=== PATIENT | male | born 1970 | race Caucasian/White ===

== ENCOUNTER 2025-04-17 11:03 | Emergency (ER) | payer MEDICAID ==
[~2025-04-17] VITALS: Ht 172.7 cm; Wt 121.0 kg
[2025-04-17 11:18] VITALS: TEMP 37.1; O2SAT 97
[2025-04-17 12:35] LABS: BASOPHILS % 0.9 % (0.0-2.0); EOSINOPHILS % 3.2 % (0.0-5.0); HEMATOCRIT. 40.4 % (42.0-52.0); HEMOGLOBIN. 12.7 g/dL (14.0-18.0); LYMPHOCYTES % 7.5 % (20.0-50.0); MEAN PLATELET VOLUME 8.7 fl (7.4-10.4); MONOCYTES % 7.7 % (2.0-8.0); NEUTROPHILS % 80.7 % (40.0-76.0); PLATELET 191 x1000/uL (130-400); RED BLOOD CELL COUNT 4.81 mill/uL (4.7-6.1); RED CELL DISTRIBUTION WIDTH 16.6 % (11.6-14.6)
[2025-04-17 12:40] LABS: CREATININE 1.5 mg/dL (0.6-1.3); UREA NITROGEN BLOOD 22.0 mg/dL (9-23)
[2025-04-17 12:42] LABS: TROPONIN I HIGH SENSITIVITY 10 ng/L (3.0-53)
[2025-04-17 13:39] LABS: ERYTHROCYTE SEDIMENTATION RATE 31 mm/hr (0-20)
[2025-04-17] MEDS ORDERED: SULF1TAB48 MT (14:51)
[2025-04-17] MEDS ORDERED: AMOX1TAB16 MT (14:51)
[2025-04-17 15:14] VITALS: BP 189/124; PULSE 99; RESP 16; O2SAT 95
== END 2025-04-17 15:19 | disposition home or self-care (01) ==
LOC: ER 11:03 → EDBD 11:03 → ER 15:19
DX: I12.9 Hypertensive chronic kidney disease with stage 1 through stage 4 chronic kidney disease, or unspecified chronic kidney disease (principal); E11.22 Type 2 diabetes mellitus with diabetic chronic kidney disease; R06.02 Shortness of breath; I87.1 Compression of vein; L97.929 Non-pressure chronic ulcer of unspecified part of left lower leg with unspecified severity; M17.12 Unilateral primary osteoarthritis, left knee; N18.9 Chronic kidney disease, unspecified; Z79.84 Long term (current) use of oral hypoglycemic drugs
CPT/HCPCS: 36415; 71045; 73590; 80048; 83880; 84484; 85025; 85651; 93005; 93971; 99285